=== PATIENT | female | born 1975 ===

== ENCOUNTER 2017-01-24 11:14 | Emergency (ER) | payer OTHER ==
[2017-01-24 11:40] VITALS: O2SAT 100
[2017-01-24 11:41] VITALS: BMI 27.4
[2017-01-24 12:14] VITALS: BP 141/85; PULSE 73; RESP 16; TEMP 98.2
--- NOTE | 2017-01-24 12:28 | ED PDOC ---
HPI: CCC, URI, Sore Throat Time Seen by Provider: 01/24/17 12:00 Chief Complaint (Nursing): Cough, Cold, Congestion Chief Complaint (Provider): Cough History Per: Patient History/Exam Limitations: no limitations Onset/Duration Of Symptoms: Days (x2) Current Symptoms Are (Timing): Still Present Associated Symptoms: Sputum (mild), Nasal Congestion, Other (body aches) Severity: Mild Additional Complaint(s): Patient is a 41 year old female presenting to the ED complaining of cough x2 days. Cough is associated with mild sputum, congestion, body aches, fatigue, and headache. Patient also complains of chest pain with cough. Patient did not take any medication for her symptoms. PMD: Shalom Duffy Past Medical History Reviewed: Historical Data, Nursing Documentation, Vital Signs Vital Signs: Last Vital Signs Temp 98.2 F 01/24/17 12:12 Pulse 73 01/24/17 12:12 Resp 16 01/24/17 12:12 BP 141/85 01/24/17 12:12 Pulse Ox 100 01/24/17 12:32 - Medical History PMH: Back Problems, Hypothyroidism Denies: Chronic Kidney Disease - Family History Family History: States: No Known Family Hx - Home Medications Home Medications: Ambulatory Orders Medication Instructions Recorded Levothyroxine [Synthroid] 88 mcg PO DAILY 01/11/16 oxyCODONE/Acetaminophen [Percocet 1 mg PO Q6 PRN 01/11/16 5/325 mg Tab] Albuterol HFA [Ventolin HFA 90 1 - 2 puff IH Q4 #200 puff 05/05/16 mcg/actuation (8 g)] Azithromycin [Zithromax Z-Ronaldo] 250 mg PO DAILY #5 tab 05/05/16 Methylprednisolone [Medrol Dose 4 mg PO DAILY #21 mg 05/05/16 Pack (21 tabs)] Nitrofurantoin Macrocrystals 100 mg PO BID #14 cap 05/11/16 [Macrobid] Levothyroxine [Synthroid] 0.088 mg PO DAILY #30 tab 01/24/17 Methylprednisolone [Medrol Dose 4 mg PO DAILY #21 mg 01/24/17 Pack (21 tabs)] Promethazine HCl/Codeine 5 ml PO HS #80 ml 01/24/17 [Prometh-Codein 6.25-10 mg/5 ml] - Allergies Allergies/Adverse Reactions: Allergies Allergy/AdvReac Type Severity Reaction Status Date / Time No Known Allergies Allergy Verified 01/24/17 12:12 Review of Systems ROS Statement: Except As Marked, All Systems Reviewed And Found Negative Constitutional: Positive for: Other (body aches +fatigue) ENT: Positive for: Nose Congestion Respiratory: Positive for: Cough, Sputum (mild) Physical Exam - Reviewed Nursing Documentation Reviewed: Yes Vital Signs Reviewed: Yes - Physical Exam Appears: Positive for: Well, Non-toxic, No Acute Distress Head Exam: Positive for: ATRAUMATIC, NORMAL INSPECTION, NORMOCEPHALIC Skin: Positive for: Normal Color, Warm, DRY Eye Exam: Positive for: EOMI, Normal appearance, PERRL ENT: Positive for: Normal ENT Inspection Cardiovascular/Chest: Positive for: Regular Rate, Rhythm. Negative for: Gallop , Murmur Respiratory: Positive for: Normal Breath Sounds. Negative for: Accessory Muscle Use, Rhonchi, Respiratory Distress Extremity: Positive for: Normal ROM Neurologic/Psych: Positive for: Alert, Oriented - ECG O2 Sat by Pulse Oximetry: 100 (RA) Pulse Ox Interpretation: Normal Medical Decision Making Medical Decision Making: Time: 12:05 Impression: URI r/o PNA Plan: CXR: NAD, as read by HERMES Suárez Attestation: Documented by Aleksandr England acting as a scribe for Marbella Edpetrona. Provider Attestation: All medical record entries made by the Scribe were at my direction and personally dictated by me. I have reviewed the chart and agreed that the record accurately reflects my personal performance of the history, physical exam, medical decision making, and the department course for this patient. I have also personally directed, reviewed, and agree with the discharge instructions and disposition. . Disposition - Clinical Impression Clinical Impression: Upper respiratory infection - Patient ED Disposition Is Patient to be Admitted: No - Disposition Referrals: Lucina Capellan MD [Primary Care Provider] - Disposition: Routine/Home Disposition Time: 14:18 Condition: GOOD Prescriptions: Methylprednisolone [Medrol Dose Pack (21 tabs)] 4 mg PO DAILY #21 mg Promethazine HCl/Codeine [Prometh-Codein 6.25-10 mg/5 ml] 5 ml PO HS #80 ml Levothyroxine [Synthroid] 0.088 mg PO DAILY #30 tab Instructions: Upper Respiratory Infection (ED) - POA Present On Arrival: None
--- NOTE | 2017-01-24 13:14 | RAD ---
HISTORY: cough and congestion COMPARISON: 05/11/2016 TECHNIQUE: Chest PA and lateral FINDINGS: LUNGS: The lungs are well inflated and clear. PLEURA: No significant pleural effusion identified. No pneumothorax apparent. CARDIOVASCULAR: Normal. OSSEOUS STRUCTURES: No significant abnormalities. VISUALIZED UPPER ABDOMEN: Normal. OTHER FINDINGS: None. IMPRESSION: No active pulmonary disease.
== END 2017-01-24 13:52 | disposition home or self-care (01) ==
LOC: H.ER 11:14
DX: J06.9 Acute upper respiratory infection, unspecified (principal); J02.9 Acute pharyngitis, unspecified; R05 Cough; E03.9 Hypothyroidism, unspecified

== ENCOUNTER 2017-03-27 20:51 | Emergency (ER) | payer SELFPAY ==
[2017-03-27 20:51] VITALS: BMI 27.4
[2017-03-27 21:21] VITALS: BP 112/81; PULSE 80; RESP 16; TEMP 98.1; O2SAT 100
--- NOTE | 2017-03-27 21:59 | ED PDOC ---
HPI: Back Time Seen by Provider: 03/27/17 21:26 Chief Complaint (Nursing): Back Pain Chief Complaint (Provider): Lower Back PAin History Per: Patient History/Exam Limitations: no limitations Onset/Duration Of Symptoms: Days (10 days) Additional Complaint(s): Ese Gonzalez, a 41 year old female, presents to the ED with atraumatic right sided lower back pain x 10 days. The patient states that her pain is worsens with movement. She reports that she was seen in the clinic and was prescribed naproxen which she has been taking with no relief. Denies dysuria, hematuria, incontinence, flank pain, abdominal pain, nausea, vomiting. Past Medical History Reviewed: Historical Data, Nursing Documentation, Vital Signs Vital Signs: Last Vital Signs Temp 98.1 F 03/27/17 21:18 Pulse 80 03/27/17 21:18 Resp 16 03/27/17 21:18 BP 112/81 03/27/17 21:18 Pulse Ox 100 03/27/17 21:18 - Medical History PMH: Back Problems, Hypothyroidism Denies: Chronic Kidney Disease - Surgical History Surgical History: No Surg Hx - Family History Family History: States: Unknown Family Hx - Home Medications Home Medications: Ambulatory Orders Medication Instructions Recorded Levothyroxine [Synthroid] 88 mcg PO DAILY 01/11/16 oxyCODONE/Acetaminophen [Percocet 1 mg PO Q6 PRN 01/11/16 5/325 mg Tab] Albuterol HFA [Ventolin HFA 90 1 - 2 puff IH Q4 #200 puff 05/05/16 mcg/actuation (8 g)] Azithromycin [Zithromax Z-Ronaldo] 250 mg PO DAILY #5 tab 05/05/16 Methylprednisolone [Medrol Dose 4 mg PO DAILY #21 mg 05/05/16 Pack (21 tabs)] Nitrofurantoin Macrocrystals 100 mg PO BID #14 cap 05/11/16 [Macrobid] Levothyroxine [Synthroid] 0.088 mg PO DAILY #30 tab 01/24/17 Methylprednisolone [Medrol Dose 4 mg PO DAILY #21 mg 01/24/17 Pack (21 tabs)] Promethazine HCl/Codeine 5 ml PO HS #80 ml 01/24/17 [Prometh-Codein 6.25-10 mg/5 ml] Cyclobenzaprine [Cyclobenzaprine 10 mg PO Q8 PRN #30 tab 03/27/17 HCl] Meloxicam [Mobic] 7.5 mg PO DAILY PRN #30 tab 03/27/17 - Allergies Allergies/Adverse Reactions: Allergies Allergy/AdvReac Type Severity Reaction Status Date / Time No Known Allergies Allergy Verified 01/24/17 12:12 Review of Systems ROS Statement: Except As Marked, All Systems Reviewed And Found Negative Gastrointestinal: Negative for: Nausea, Vomiting, Abdominal Pain Genitourinary Female: Negative for: Dysuria, Incontinence Musculoskeletal: Positive for: Other (Denies flank pain). Negative for: Back Pain Physical Exam - Reviewed Nursing Documentation Reviewed: Yes Vital Signs Reviewed: Yes - Physical Exam Appears: Positive for: Well, Non-toxic, No Acute Distress Head Exam: Positive for: ATRAUMATIC, NORMOCEPHALIC Skin: Positive for: Normal Color, Warm. Negative for: Rash Respiratory: Positive for: Normal Breath Sounds. Negative for: Wheezing, Respiratory Distress Gastrointestinal/Abdominal: Positive for: Normal Exam, Bowel Sounds, Soft. Negative for: Tenderness Back: Positive for: Normal Inspection, Muscle Spasm (Muscle spasms in the lumbar area.). Negative for: L CVA Tenderness, R CVA Tenderness, Vertebral Tenderness (No vetebral tenderness) Extremity: Positive for: Normal ROM. Negative for: Tenderness (No tenderness to the right lower back), Deformity, Swelling Neurologic/Psych: Positive for: Alert, Oriented - Laboratory Results Urine POC: Negative Urine dip results: Negative for: Leukocyte Esterase, Blood, Nitrate, Ketones, Glucose, Bilirubin, Protein - ECG O2 Sat by Pulse Oximetry: 100 (RA) Pulse Ox Interpretation: Normal - Progress Re-evaluation Time: 22:53 Condition: Re-examined, Improved Medical Decision Making Medical Decision Makin:26 Initial Impression: Right sided lower back pain Initial Plan: * Upreg * Udip * Toradol 10mg PO * Flexeril 10mg PO * RAD LS spine AP/LAT Scribe Attestation Documented by Erin Keene acting as a scribe for Maxx Pormentilla, PA-C. Provider Attestation All medical record entries made by the Zacibpiedad were at my direction and personally dictated by me. I have reviewed the chart and agree that the record accurately reflects my personal performance of the history, physical exam, medical decision making, and the department course for this patient. I have also personally directed, reviewed, and agree with the discharge instructions and disposition. Disposition - Clinical Impression Clinical Impression: Back pain - Patient ED Disposition Is Patient to be Admitted: No - Disposition Referrals: [facility] [Outside] [facility] [Outside] Disposition: Routine/Home Disposition Time: 22:53 Condition: IMPROVED Prescriptions: Cyclobenzaprine [Cyclobenzaprine HCl] 10 mg PO Q8 PRN #30 tab PRN Reason: Muscle Spasm Meloxicam [Mobic] 7.5 mg PO DAILY PRN #30 tab PRN Reason: Pain, Mild (1-3) Instructions: Acute Low Back Pain (ED) Print Language: MACEDONIAN
--- NOTE | 2017-03-28 11:00 | RAD ---
PROCEDURE: Radiographs of the Lumbar Spine. HISTORY: pain COMPARISON: Comparison made with prior study 12/21/2015 FINDINGS: BONES: No acute compression fractures no retropulsed fragments. Lumbar vertebral bodies exhibit relatively normal stature. . Minimal chronic anterior stature loss T11 segment. Mild side bending and/or spasm towards the right side. The vertebral bodies and facets otherwise normally aligned. DISC SPACES: Disc space heights are relatively maintained. Mild facet arthropathy L5-S1 and to a lesser degree L4-L5 and less so L3-L4 levels. Study OTHER FINDINGS: Re- demonstrated is in situ Copper-T IUD IMPRESSION: No acute fractures. Minor multilevel degenerative spondylosis.
== END 2017-03-27 23:02 | disposition home or self-care (01) ==
LOC: H.ER 20:51
DX: M54.5 Low back pain (principal); E03.9 Hypothyroidism, unspecified

== ENCOUNTER 2017-07-10 11:49 | Emergency (ER) | payer SELFPAY ==
[2017-07-10 11:50] VITALS: BMI 27.4
[2017-07-10 12:09] VITALS: BP 148/80; PULSE 86; RESP 16; TEMP 97; O2SAT 100
[2017-07-10] MEDS ORDERED: Naproxen 500 MG TAB PO STA (12:14)
--- NOTE | 2017-07-10 12:17 | ED PDOC ---
Lower Extremity Pain/Injury Time Seen by Provider: 07/10/17 12:15 Chief Complaint (Nursing): Lower Extremity Problem/Injury Chief Complaint (Provider): left leg pain History Per: Patient (42 y/o female here with left leg pain after trip and fall yesterday downstairs. Patient notes she is unable to bear weight on foot today. Took Motrin yesterday for control of pain.) Past Medical History Reviewed: Historical Data, Nursing Documentation, Vital Signs Vital Signs: Last Vital Signs Temp 97.0 F L 07/10/17 12:07 Pulse 86 07/10/17 12:07 Resp 16 07/10/17 12:07 BP 148/80 07/10/17 12:07 Pulse Ox 100 07/10/17 12:07 - Medical History PMH: Back Problems, Hypothyroidism Denies: Chronic Kidney Disease - Family History Family History: States: Unknown Family Hx - Home Medications Home Medications: Ambulatory Orders Medication Instructions Recorded Levothyroxine [Synthroid] 88 mcg PO DAILY 01/11/16 oxyCODONE/Acetaminophen [Percocet 1 mg PO Q6 PRN 01/11/16 5/325 mg Tab] Albuterol HFA [Ventolin HFA 90 1 - 2 puff IH Q4 #200 puff 05/05/16 mcg/actuation (8 g)] Azithromycin [Zithromax Z-Ronaldo] 250 mg PO DAILY #5 tab 05/05/16 Methylprednisolone [Medrol Dose 4 mg PO DAILY #21 mg 05/05/16 Pack (21 tabs)] Nitrofurantoin Macrocrystals 100 mg PO BID #14 cap 05/11/16 [Macrobid] Levothyroxine [Synthroid] 0.088 mg PO DAILY #30 tab 01/24/17 Methylprednisolone [Medrol Dose 4 mg PO DAILY #21 mg 01/24/17 Pack (21 tabs)] Promethazine HCl/Codeine 5 ml PO HS #80 ml 01/24/17 [Prometh-Codein 6.25-10 mg/5 ml] Cyclobenzaprine [Cyclobenzaprine 10 mg PO Q8 PRN #30 tab 03/27/17 HCl] Meloxicam [Mobic] 7.5 mg PO DAILY PRN #30 tab 03/27/17 Ibuprofen [Motrin] 600 mg PO Q8 PRN #21 tab 07/10/17 - Allergies Allergies/Adverse Reactions: Allergies Allergy/AdvReac Type Severity Reaction Status Date / Time No Known Allergies Allergy Verified 07/10/17 12:07 Review of Systems ROS Statement: Except As Marked, All Systems Reviewed And Found Negative Musculoskeletal: Positive for: Leg Pain Physical Exam - Reviewed Nursing Documentation Reviewed: Yes Vital Signs Reviewed: Yes - Physical Exam Appears: Positive for: Well, Non-toxic, No Acute Distress Head Exam: Positive for: ATRAUMATIC, NORMAL INSPECTION, NORMOCEPHALIC Skin: Positive for: Normal Color, Warm, DRY Eye Exam: Positive for: EOMI, Normal appearance, PERRL ENT: Positive for: Normal ENT Inspection Neck: Positive for: Normal, Painless ROM Cardiovascular/Chest: Positive for: Regular Rate, Rhythm Respiratory: Positive for: CNT, Normal Breath Sounds Gastrointestinal/Abdominal: Positive for: Normal Exam, Bowel Sounds, Soft Back: Positive for: Normal Inspection Extremity: Positive for: Normal ROM, Other (abrasion anterior left leg. ecchymosis lateral left leg. tender medial malleoulus. nontender lateral malleoulus. Nontender tib-fib. ) Neurologic/Psych: Positive for: Alert, Oriented - ECG O2 Sat by Pulse Oximetry: 100 - Progress ED Course And Treament: Naproxen 500mg x 1 dose XRY OF TIB-FIB NEG XRY OF ANKLE NEG XRY OF FOOT NEG 13:20 Discussed case with podiatry regarding foot pain and possible lisfranc injury. 13:38 Podiatry evaluates patient at bedside. PATIENT PLACED IN POSTERIOR SPLINT/ GIVEN CRUTCH INSTRUCTIONS. F/U WITH PODIATRY IN 1 WEEK Disposition - Clinical Impression Clinical Impression: Foot sprain - Patient ED Disposition Is Patient to be Admitted: No - Disposition Referrals: Podiatry Clinic [Outside] Disposition: Routine/Home Disposition Time: 14:45 Condition: FAIR Additional Instructions: [facility] Prescriptions: Ibuprofen [Motrin] 600 mg PO Q8 PRN #21 tab PRN Reason: Pain, Moderate (4-7) Instructions: Foot Sprain (ED) Forms: [place] (Greenlandic), [facility] ED School/Work Excuse Print Language: ESTONIAN
[2017-07-10] MEDS ORDERED: Naproxen 500 MG TAB PO ONE (12:36)
--- NOTE | 2017-07-10 14:45 | RAD ---
PROCEDURE: Left Foot Radiographs. HISTORY: foot injury COMPARISON: None. FINDINGS: BONES: Normal. No fracture. JOINTS: Minor hallux valgus deformity. SOFT TISSUES: Normal. OTHER FINDINGS: None. IMPRESSION: No acute findings related to/accounting for the clinical presentation.
--- NOTE | 2017-07-10 14:46 | RAD ---
PROCEDURE: Left Ankle Radiographs. HISTORY: ankle injury COMPARISON: None FINDINGS: BONES: Normal. No fracture. JOINTS: Normal. No osteoarthritis. Ankle mortise maintained. Talar dome intact SOFT TISSUES: Normal. OTHER FINDINGS: None. IMPRESSION: No acute findings related to/accounting for the clinical presentation.
--- NOTE | 2017-07-10 14:46 | RAD ---
PROCEDURE: Radiographs of the left tibia and fibula. HISTORY: r/o leg fx COMPARISON: None available. TECHNIQUE: Frontal and lateral views obtained. FINDINGS: BONES: No fracture or destructive lesion. JOINT SPACES: Unremarkable. OTHER FINDINGS: None. IMPRESSION: Unremarkable radiographs of the left tibia and fibula.
--- NOTE | 2017-07-10 16:29 | CP.PCM.CON ---
History of Present Illness - History of Present Illness History of Present Illness: 42 y/o female seen in ED by podiatry for left foot injury following a trip and fall incident yesterday. Pt states that she only had mild pain yesterday for which she took 2 Advil and was able to walk and sleep fine. Pt states when she woke up today it was very painful to walk on the foot at all and she came to the ED. Pt admits to a pins and needles sensation in the top of her foot in the area of her pain. Pt denies any F/C/N/V/D/SOB. PMH: hypothyroid PSH: cyst removed from neck All: NKDA Social: denies EtOH, cigarette, or drug use Review of Systems - Review of Systems All systems: reviewed and no additional remarkable complaints except (per HPI) Past Patient History - Past Medical History & Family History Past Medical History?: Yes - Past Social History Smoking Status: Never Smoked - CARDIAC Hx Cardiac Disorders: No - PULMONARY Hx Respiratory Disorders: No - NEUROLOGICAL Hx Neurological Disorder: Yes Other/Comment: BELLS PALSY - HEENT Hx HEENT Problems: Yes Hx Glaucoma: Yes (left eye) - RENAL Hx Chronic Kidney Disease: No - ENDOCRINE/METABOLIC Hx Hypothyroidism: Yes - HEMATOLOGICAL/ONCOLOGICAL Hx Blood Disorders: No - INTEGUMENTARY Hx Dermatological Problems: No - MUSCULOSKELETAL/RHEUMATOLOGICAL Hx Musculoskeletal Disorders: Yes - GASTROINTESTINAL Hx Gastrointestinal Disorders: No - GENITOURINARY/GYNECOLOGICAL Hx Genitourinary Disorders: No - PSYCHIATRIC Hx Psychophysiologic Disorder: No Hx Emotional Abuse: No Hx Physical Abuse: No Hx Substance Use: No - SURGICAL HISTORY Hx Surgeries: Yes (left shoulder surgery) - ANESTHESIA Hx Anesthesia: Yes Hx Malignant Hyperthermia: No Meds Home Medications: Home Medication List Medication Instructions Recorded Confirmed Type Ibuprofen [Motrin] 600 mg PO Q8 PRN #21 tab 07/10/17 Rx Allergies/Adverse Reactions: Allergies Allergy/AdvReac Type Severity Reaction Status Date / Time No Known Allergies Allergy Verified 07/10/17 12:07 Physical Exam - Constitutional Appears: Well, Non-toxic, No Acute Distress - Extremities Exam Additional comments: LLE focused examination: Vasc: DP/PT pulses palpable 2/4. Temperature gradient warm to cool. Mild non pitting edema to ankle and dorsum of foot, specifically dorsal midfoot. CFT < 3sec to all digits Derm: Ecchymosis noted to medial aspect of distal 1/2 of left leg. No open lesions, no erythema, no clinical signs of infection Neuro: Protective sensation is grossly intact Ortho: Tenderness upon palpation of dorsal midfoot. Limited ankle dorsiflexion due to pain and guarding. No pain elicited upon piano faustin test of 1st and 2nd digits. Ankle plantarflexion is WNL with muscle strength 5/5 for all plantarflexors. - Neurological Exam Neurological exam: Alert, Oriented x3 - Psychiatric Exam Psychiatric exam: Normal Affect, Normal Mood Results - Vital Signs Recent Vital Signs: Last Vital Signs Temp 97.0 F L 07/10/17 12:07 Pulse 86 07/10/17 12:07 Resp 16 07/10/17 12:07 BP 148/80 07/10/17 12:07 Pulse Ox 100 07/10/17 14:48 Assessment & Plan - Assessment and Plan (Free Text) Assessment: 42 y/o female with left midfoot sprain and possible nerve strain secondary to fall Plan: Pt seen and evaluated in ED Discussed plan in detail with attending Dr. Kvng Aguila reviewed- afebrile Applied posterior splint to LLE and instructed patient to keep clean dry and intact until next visit Pt dispensed crutches and instructed to use at all times Pt to get new x-rays prior to clinic visit Pt to follow up in 1 week in podiatry clinic at [facility]
== END 2017-07-10 15:30 | disposition home or self-care (01) ==
LOC: H.ER 11:49
DX: S93.602A Unspecified sprain of left foot, initial encounter (principal); W10.9XXA Fall (on) (from) unspecified stairs and steps, initial encounter; Y93.9 Activity, unspecified; E03.9 Hypothyroidism, unspecified

== ENCOUNTER 2017-09-18 19:42 | Emergency (ER) | payer SELFPAY ==
[2017-09-18 19:43] VITALS: BMI 27.4
[2017-09-18 20:02] VITALS: BP 130/96; PULSE 86; RESP 16; TEMP 97.3; O2SAT 99
--- NOTE | 2017-09-18 20:28 | ED PDOC ---
Lower Extremity Pain/Injury Time Seen by Provider: 09/18/17 20:06 Chief Complaint (Nursing): Lower Extremity Problem/Injury Chief Complaint (Provider): Foot injury History Per: Patient History/Exam Limitations: no limitations Onset/Duration Of Symptoms: Mins (x30) Current Symptoms Are (Timing): Still Present Additional Complaint(s): Ese Gonzalez is a 42 year old female who presents to the ED complaining of a left foot injury sustained 30 minutes prior to arrival. Patient states a piece of wood fell and hit her left foot. Patient states she injured the same foot 2 months ago and is scheduled for surgery on 10/07/17. Before injury patient was able to ambulate with brace, but is no longer capable of doing so since the injury this evening. No meds taken for pain relief prior to arrival. PMD: [facility] Past Medical History Reviewed: Historical Data, Nursing Documentation, Vital Signs Vital Signs: Last Vital Signs Temp 97.3 F L 09/18/17 20:00 Pulse 86 09/18/17 20:00 Resp 16 09/18/17 20:00 BP 130/96 H 09/18/17 20:00 Pulse Ox 99 09/18/17 20:00 - Medical History PMH: Back Problems, Hypothyroidism - Surgical History Other surgeries: Cyst removal from left side of neck - Family History Family History: States: No Known Family Hx - Living Arrangements Living Arrangements: With Family - Social History Current smoker - smoking cessation education provided: No Alcohol: None Drugs: Denies - Home Medications Home Medications: Ambulatory Orders Medication Instructions Recorded Levothyroxine [Synthroid] 88 mcg PO DAILY 01/11/16 oxyCODONE/Acetaminophen [Percocet 1 mg PO Q6 PRN 01/11/16 5/325 mg Tab] Albuterol HFA [Ventolin HFA 90 1 - 2 puff IH Q4 #200 puff 05/05/16 mcg/actuation (8 g)] Azithromycin [Zithromax Z-Ronaldo] 250 mg PO DAILY #5 tab 05/05/16 Methylprednisolone [Medrol Dose 4 mg PO DAILY #21 mg 05/05/16 Pack (21 tabs)] Nitrofurantoin Macrocrystals 100 mg PO BID #14 cap 05/11/16 [Macrobid] Levothyroxine [Synthroid] 0.088 mg PO DAILY #30 tab 01/24/17 Methylprednisolone [Medrol Dose 4 mg PO DAILY #21 mg 01/24/17 Pack (21 tabs)] Promethazine HCl/Codeine 5 ml PO HS #80 ml 01/24/17 [Prometh-Codein 6.25-10 mg/5 ml] Cyclobenzaprine [Cyclobenzaprine 10 mg PO Q8 PRN #30 tab 03/27/17 HCl] Meloxicam [Mobic] 7.5 mg PO DAILY PRN #30 tab 03/27/17 Ibuprofen [Motrin] 600 mg PO Q8 PRN #21 tab 07/10/17 Ibuprofen [Motrin Tab] 800 mg PO Q8 PRN #20 tab 09/18/17 traMADol [Ultram] 50 mg PO TID PRN #15 tab 09/18/17 - Allergies Allergies/Adverse Reactions: Allergies Allergy/AdvReac Type Severity Reaction Status Date / Time No Known Allergies Allergy Verified 07/10/17 12:07 Review of Systems ROS Statement: Except As Marked, All Systems Reviewed And Found Negative Musculoskeletal: Positive for: Foot Pain (left foot injury) Physical Exam - Reviewed Nursing Documentation Reviewed: Yes Vital Signs Reviewed: Yes - Physical Exam Appears: Positive for: Well, Non-toxic, No Acute Distress Head Exam: Positive for: ATRAUMATIC, NORMAL INSPECTION, NORMOCEPHALIC Skin: Positive for: Normal Color. Negative for: Rash Eye Exam: Positive for: Normal appearance Extremity: Positive for: Tenderness (Diffuse tenderness to dorsal aspect of left foot ). Negative for: Deformity (None obvious) Neurologic/Psych: Positive for: Alert, Oriented - Laboratory Results Urine POC: Negative (test declined by patient, she is certain she is not ) - ECG O2 Sat by Pulse Oximetry: 99 (RA) Pulse Ox Interpretation: Normal - Other Rad Left foot x-ray X-Ray: Interpreted by Me, Viewed By Me X-Ray Interpretation: no fx, no dis Medical Decision Making Medical Decision Making: Time: 20:22 Initial Impression: 42 year old female with left foot injury Plan: --Motrin 600 mg PO --X-Ray Foot Left 3 Views --Reevaluation Podiatry resident, Dr. Perez at bedside to see patient. Resident applied Santo wrap and shoe. Patient was given crutches. Prescriptions provided for Motrin and tramadol. Patient has follow-up next week with Dr. Ruiz. Scribe Attestation: Documented by Cricket Esqueda, acting as a scribe for Marbella Ovalles PA-C Provider Scribe Attestation: All medical record entries made by the Scribe were at my direction and personally dictated by me. I have reviewed the chart and agree that the record accurately reflects my personal performance of the history, physical exam, medical decision making, and the department course for this patient. I have also personally directed, reviewed, and agree with the discharge instructions and disposition. Disposition - Clinical Impression Clinical Impression: Foot contusion - Patient ED Disposition Is Patient to be Admitted: No Counseled Patient/Family Regarding: Studies Performed, Diagnosis, Need For Followup, Rx Given - Disposition Referrals: German Ruiz DPM [Staff Provider] - Disposition: Routine/Home Disposition Time: 22:17 Condition: STABLE Additional Instructions: Ice and rest the affected area. Prescription meds as directed as needed for pain. Follow-up with shank carrier as scheduled next week. Prescriptions: Ibuprofen [Motrin Tab] 800 mg PO Q8 PRN #20 tab PRN Reason: Pain, Moderate (4-7) traMADol [Ultram] 50 mg PO TID PRN #15 tab PRN Reason: Pain, Moderate (4-7) Instructions: Foot Contusion (ED) Forms: [place] (Spanish)
--- NOTE | 2017-09-19 10:58 | RAD ---
PROCEDURE: Left Foot Radiographs. HISTORY: 07/17/2017 COMPARISON: None. FINDINGS: BONES: Normal. No fracture. JOINTS: Normal. SOFT TISSUES: Normal. OTHER FINDINGS: None. IMPRESSION: No acute findings related to/accounting for the clinical presentation. Concordant results with the preliminary interpretation rendered by the emergency department physician procedure.
== END 2017-09-18 22:31 | disposition home or self-care (01) ==
LOC: H.ER 19:42
DX: S99.922A Unspecified injury of left foot, initial encounter (principal); W22.8XXA Striking against or struck by other objects, initial encounter; Y92.89 Other specified places as the place of occurrence of the external cause; E03.9 Hypothyroidism, unspecified

== ENCOUNTER 2017-10-07 06:23 | Day surgery (SDC) | payer SELFPAY ==
--- NOTE | 2017-09-18 22:54 | CP.PCM.CON ---
History of Present Illness - History of Present Illness History of Present Illness: Podiatry Consult for Dr. Ruiz 42 y.o female with PMH of hypothyroidism presents to the ED for left foot pain secondary to trauma. Patient reports that the wooden block laying against the wall fell on her left foot when she removed a basket that was holding the wooden block in place. Patient reports that she is scheduled to have Left foot ORIF Lisfranc next month. She reports the wooden block landed at the Lisfranc area where she was having prior pain before. She rates her pain 10/10. Describes the pain as a throbbing pain. Remains localized to the lisfranc area. Reports difficult for her to ambulate. She was given pain medication in the ED which she states is helping. She denies n/v/sob/cp/chills/f/d PMH: hypothyroidism PSH: cyst removed from neck Meds: Levothyroxine ALL: NKDA FH: noncontributory SH: denies smoking, drinking, or elicit drug use Past Patient History - Past Medical History & Family History Past Medical History?: Yes - Past Social History Smoking Status: Never Smoked - CARDIAC Hx Cardiac Disorders: No - PULMONARY Hx Respiratory Disorders: No - NEUROLOGICAL Hx Neurological Disorder: Yes Other/Comment: BELLS PALSY - HEENT Hx HEENT Problems: Yes Hx Glaucoma: Yes (left eye) - RENAL Hx Chronic Kidney Disease: No - ENDOCRINE/METABOLIC Hx Hypothyroidism: Yes - HEMATOLOGICAL/ONCOLOGICAL Hx Blood Disorders: No - INTEGUMENTARY Hx Dermatological Problems: No - MUSCULOSKELETAL/RHEUMATOLOGICAL Hx Musculoskeletal Disorders: Yes - GASTROINTESTINAL Hx Gastrointestinal Disorders: No - GENITOURINARY/GYNECOLOGICAL Hx Genitourinary Disorders: No - PSYCHIATRIC Hx Psychophysiologic Disorder: No Hx Emotional Abuse: No Hx Physical Abuse: No Hx Substance Use: No - SURGICAL HISTORY Hx Surgeries: Yes (left shoulder surgery) - ANESTHESIA Hx Anesthesia: Yes Hx Malignant Hyperthermia: No Meds Allergies/Adverse Reactions: Allergies Allergy/AdvReac Type Severity Reaction Status Date / Time No Known Allergies Allergy Verified 07/10/17 12:07 Physical Exam - Constitutional Appears: Well, Non-toxic, No Acute Distress - Extremities Exam Additional comments: Vasc: DP and PT 2/4 bilaterally, CFT <3 seconds, localized edema noted to the dorsum of the left foot Ortho: severe pain with palpation to the lisfranc joint, moderate pain ilicited with dorsiflexion of the 1st MPJ left Neuro: gross and protective sensation intact bilaterally Derm: no open lesions, mild ecchymosis noted to the 1st metatarsal base-2nd metatarsal base, no increase warmth, no clinical signs of infection - Neurological Exam Neurological exam: Alert, Oriented x3 - Psychiatric Exam Psychiatric exam: Normal Affect, Normal Mood Assessment & Plan - Assessment and Plan (Free Text) Assessment: 42 y.o female with PMH of hypothyroidism presents to the ED for left foot contusion at the lisfranc joint Plan: Patient examined and evaluated Charts, labs, vitals reviewed Discussed plan in detail with Dr. Ruiz X-rays reviewed: no fractures noted; compared x-ray to 07/17/17 with no changes noted, no acute changes secondary to today's injuries. RENETTA wrap, dispense surgical shoe Educated on RICE protocol Instructed to PWB in surgical shoe and RENETTA Recommends OTC pain medication for pain management Will continue treatment plan for previous injuries: Lisfranc ORIF for next month as talked about in [facility] clinic Will f/u with Dr. Ruiz in [facility] clinic on Saturday as scheduled Thank you for the consult
[2017-10-03 11:45] VITALS: BMI 28.3
[2017-10-07] MEDS ORDERED: Lactated Ringer's 1,000 ML IV ONE ×2 (06:55→08:54)
[2017-10-07] MEDS ORDERED: Lidocaine 1% Inj (20ml) IJ ONE (07:07)
[2017-10-07] MEDS ORDERED: ceFAZolin IV 2 gm in Dextrose 2 GM/50 ML BAG IVPB ONE (07:07)
--- NOTE | 2017-10-07 07:12 | CP.SDSHP ---
Same Day Surgery H & P - History Proposed Procedure: L- ORIF Lisfranc Pre-Op Diagnosis: left foot lisfranc joint contusion - Previous Medical/Surgical History Endocrine/Metabolic: Thyroid Disease - Allergies Allergies: Allergies No Known Allergies Allergy (Verified 07/10/17 12:07) - Physical Exam Vital Signs: Vital Signs 10/07/17 10/07/17 06:39 06:41 Temperature 98.5 F Pulse Rate 90 90 Respiratory 20 Rate Blood Pressure 136/89 O2 Sat by Pulse 99 Oximetry Mental Status: Alert & Oriented x3 Neuro: WNL Heart: WNL Lungs: WNL GI: WNL - {Optional Preform as Required} Abdomen: WNL Ortho: Other - Date & Time Date: 10/07/17 Time: 07:11 Short Stay Discharge - Short Stay Discharge Admitting Diagnosis/Reason for Visit: S93.325 Disposition: HOME/ ROUTINE Additional Instructions (Diet, Activity): -Patient in good/stable condition for discharge home -Pt to resume medications per medical reconciliation -Resume regular diet Please keep dressing clean, dry, & intact to surgical site -Use plastic bag over bandage for showering -Wear post op shoe at all times when ambulating -Call clinic if you seesigns of infection (redness, swelling, malodor) -Please make an appointment to see Dr. Ruiz in office/clinic within 1 week for post-op check Progress Note/Discharge Note with Instructions: - Patient evaluated bedside in recovery s/p surgical procedure. - After surgical procedure patient in NAD - (+) Void, (+) Appetite - Capillary refill time <3s and NVSI intact. - Patient denies complaints at this time - Post operative instructions and plan of care explained to patient at length. - Pt. acknowledges understanding. - Patient stable for DC per podiatric surgery
[2017-10-07] MEDS ORDERED: Bupivacaine 0.5% Inj(30mL) IJ ONE ×2 (07:15→09:10)
[2017-10-07] MEDS ORDERED: Sodium Chloride 0.9% 1,000 ML IV SCH (07:15)
--- NOTE | 2017-10-07 07:16 | CP.PCM.PN ---
Subjective - Date & Time of Evaluation Date of Evaluation: 10/07/17 Time of Evaluation: 07:12 - Subjective Subjective: 42 y/o female with PMHx of hyperthyroidism seen and evaluated at bedside in [facility] prior to L- ORIF Lisfranc proecure. Patient agrees to having surgery on her left foot today. Patient states that she has been NPO since midnight. Patient denies of any adverse reactions to anesthesia. Denies of any recent F/N/V/C/SOB/ CP today. PMHx: Hyperthyroidism PSHx: Left shoulder cyst removal Allergies: N.K.D.A SHx: denies smoking, EtOH use or illicit drug usage Objective - Vital Signs/Intake and Output Vital Signs (last 24 hours): Temp Pulse Resp BP Pulse Ox 98.5 F 90 20 136/89 99 10/07/17 06:39 10/07/17 06:41 10/07/17 06:39 10/07/17 06:39 10/07/17 06:39 - Medications Medications: Current Medications Bupivacaine HCl (Marcaine 0.5%) 50 ml IJ ONCE ONE Stop: 10/07/17 07:08 Cefazolin Sodium 2 gm/ Sodium (Chloride) 100 mls @ 100 mls/hr IVPB ONCE ONE PRN Reason: Protocol Stop: 10/07/17 08:06 Sodium Chloride (Sodium Chloride 0.9%) 1,000 mls @ 100 mls/hr IV .Q10H JENS Stop: 10/08/17 07:08 Lidocaine HCl (Lidocaine 1% (20ml)) 20 ml IJ ONCE ONE Stop: 10/07/17 07:08 - Constitutional Appears: Well, Non-toxic, No Acute Distress - Respiratory Exam Respiratory Exam: Clear to Ausculation Bilateral, NORMAL BREATHING PATTERN - Cardiovascular Exam Cardiovascular Exam: REGULAR RHYTHM, +S1, +S2 - Extremities Exam Extremities Exam: absent: Calf Tenderness Additional comments: Vasc: DP and PT 2/4 bilaterally, CFT <3 seconds, Temp gradient: warm to cool from proximal to distal, minimal non-pitting edema noted on the dorsum of the left foot Derm: no open lesions, mild ecchymosis noted to the medial aspect of the left foot, no increase warmth, no clinical signs of infection Neuro: gross and protective sensation intact bilaterally Ortho: mild pain with palpation to the lisfranc joint, moderate pain ilicited with dorsiflexion of the 1st MPJ left - Neurological Exam Neurological Exam: Alert, Awake, Oriented x3 - Psychiatric Exam Psychiatric exam: Normal Affect, Normal Mood Assessment and Plan - Assessment and Plan (Free Text) Assessment: 42 y/o female with PMHx of hyperthyroidism seen in [facility] for left ORIF of Lisfranc procedure Plan: Pt was seen and examined in [facility] Pt NPO status was confirmed All Pre-op testing and clearance was in the chart Pt has exhausted all conservative treatment at this time and is opting for surgical intervention Pt was explained procedure and post-operative course All pt's questions were answered to satisfaction No guarantees were made Pt understands all risks, benefits and complications of procedure Pt will follow-up with Dr. Ruiz
[2017-10-07] MEDS ORDERED: ceFAZolin IV 1 gm in Dextrose 1 GM/50 ML BAG IVPB ONE ×2 (07:27→07:33)
[2017-10-07] MEDS ORDERED: Lidocaine 1% Inj (20ml) ONE (07:27)
[2017-10-07] MEDS ORDERED: Bupivacaine 0.5% Inj(30mL) ONE (07:27)
[2017-10-07] MEDS ORDERED: Midazolam 2 MG/2 ML VIAL ONE (07:33)
[2017-10-07] MEDS ORDERED: Propofol 10 mg/ml Inj (20 ML) ONE (07:33)
[2017-10-07] MEDS ORDERED: Oxycodone/Acetaminophen 5/325 mg Tab PO PRN ×2 (09:23)
--- NOTE | 2017-10-07 09:27 | PCM.SURG1 ---
Surgeon's Initial Post Op Note - Surgeon's Notes Surgeon: Dr. German Ruiz Principal Strategist: Dr. Xavier Rios Type of Anesthesia: General LMA, Local Pre-Operative Diagnosis: Left foot Lisfranc instability, sprain Operative Findings: see dictation. M: 4.0mm Karlee PT screw, 4-0 vicryl, 4-0 nylon. I: 20ml 1:1 1% lidocaine plain, 0.5% marcaine plain; 10ml 0.5% marcaine plain Post-Operative Diagnosis: Left foot Lisfranc ligament instability, sprain Operation Performed: Left foot open reduction and internal fixation of Lisfranc ligament instability Specimen/Specimens Removed: none Estimated Blood Loss: EBL {In ML}: 2 Blood Products Given: N/A Drains Used: No Drains Post-Op Condition: Good Date of Surgery/Procedure: 10/07/17 Time of Surgery/Procedure: 08:30
[2017-10-07] MEDS ORDERED: DiphenhydrAMINE 50 mg/ml Inj IVP PRN (09:55)
[2017-10-07] MEDS ORDERED: Lactated Ringer's 1,000 ML IV SCH (10:00)
[2017-10-07] MEDS: HYDROmorphone 0.5 mg/0.5 ml ISec IVP PRN ×2 (10:15→10:27)
[2017-10-07 10:29] VITALS: RESP 18
[2017-10-07 13:14] VITALS: BP 108/72; PULSE 84; TEMP 97.7; O2SAT 100
--- NOTE | 2017-10-07 14:56 | RAD ---
PROCEDURE: Left Foot Radiographs. HISTORY: s/p left foot surgery COMPARISON: Preoperative examination 09/18/2017 FINDINGS: BONES: Postoperative findings identified related to partially fenestrated screw traversing the 1st cuneiform and proximal 2nd metatarsal. JOINTS: Normal. SOFT TISSUES: Normal. OTHER FINDINGS: None. IMPRESSION: Satisfactory postoperative status. Limitations of the current study: Detail obscured by overlying fiberglass cast.
--- NOTE | 2017-10-07 16:50 | RAD ---
PROCEDURE: Fluoroscopy over 1 hour HISTORY: LEFT FOOT COMPARISON: None TECHNIQUE: Standard protocol for this study/examination. FINDINGS: Total fluoroscopic time (continuous mode) utilized during the procedure: 84.9 seconds. Submitted images from the current procedure: 8.0 IMPRESSION: Fluoroscopic assistance provided described in greater detail above. For open reduction internal fixation
--- NOTE | 2017-10-09 19:50 | OP ---
PROCEDURE DATE: 10/07/2017 PREOPERATIVE DIAGNOSIS: Left foot Lisfranc ligament tear and instability. POSTOPERATIVE DIAGNOSIS: Left foot Lisfranc ligament tear and instability. PROCEDURE PERFORMED: Left foot Lisfranc ligament and joint open reduction and internal fixation. SURGEON: Dr. German Ruiz. TOBACCO CLASSER: Dr. Kodak Keane and Dr. May Greenwood. ANESTHESIA: General LMA and local injection. INDICATIONS: This patient is a 42-year-old female with the aforementioned diagnosis. The patient has been treated by Dr. Ruiz in the outpatient podiatry clinic and she has exhausted all conservative treatment options, and the patient seeks surgical intervention at this time. All alternatives, benefits, complications, and risks of surgical procedure were explained to the patient at length. The patient verbalizes understanding and wished to proceed. All questions were addressed and answered. No guarantees were given or implied. The consent was signed and the n.p.o. status was confirmed prior to bringing the patient into the operating room. OPERATIVE PROCEDURE: The patient was brought into the operating room, and placed on the operative room table in the supine position. A pneumatic ankle tourniquet was applied to the supramalleolar region around the left ankle. After induction of general anesthesia, a total of 20ml of a 1:1 mixture of 0.5% marcaine plain and 1% lidocaine plain was administered to the left foot. The left foot was then prepped and draped in the normal sterile manner and the procedure began. PROCEDURE: Left foot Lisfranc ligament and joint open reduction and internal fixation. Attention was directed to the dorsal medial aspect of the left midfoot where a linear longitudinal incision was made directly overlying the medial cuneiform with a 15 blade. The incision was deepened through superficial and subcutaneous tissues utilizing sharp and blunt dissection. Care was taken to retract all vital neurovascular structures throughout the duration of the procedure. Dissection was then carried down through the level of the periosteum overlying the medial aspect of the medial cuneiform and the 15 blade was again utilized to make a linear incision through the periosteum. A [place]odan elevator and 15 blade were then utilized to free the periosteum from the medial surface of the medial cuneiform. Next, intraoperative fluoroscopy was utilized and a stress test was performed to assess instability at the intercuneiform joint and Lisfranc joint. It was noted that there was no instability at the intercuneiform joint, but there was instability between the second metatarsal medial cuneiform along the axis of the Lisfranc ligament. Next, a guidewire for a Karlee 4.0-mm cannulated screw was inserted into the medial aspect of the medial cuneiform and directed distal lateral towards the base of the second metatarsal to recreate the Lisfranc ligament. Intraoperative fluoroscopy was utilized to confirm appropriate placement. Next, the appropriate under-drill for a Karlee 4.0-mm partially-threaded screw was drilled over the guide wire using standard AO technique. The guide wire was then remove and a Karlee 4.0-mm solid partially- threaded screw was inserted utilizing standard AO technique and tightened to 2-finger tightness. Upon insertion of the screw, the Lisfranc joint was held in manual reduction to ensure stability of the ligament and joint. Intraoperative fluoroscopy was then again utilized throughout this procedure. It was then noted that the Lisfranc ligament and joint had been adequately stabilized and the screw was in the appropriate position. The surgical area was then flushed with copious amounts of sterile normal saline. The subcutaneous tissues were then reapproximated utilizing 4-0 Vicryl suture. The skin was then reapproximated utilizing 4-0 nylon suture. Intraoperative injections consisted of 10 mL of 0.5% Marcaine plain. Postoperative bandages consisted of Xeroform, DSD, Cuca, Webril, a posterior splint, and Santo bandages. POSTOPERATIVE CONDITION: The patient tolerated the procedure and the anesthesia well with no apparent complications or complaints. The patient was escorted from the OR to the recovery room with vital signs stable and neurovascular status intact. The patient will follow up with Dr. Ruiz as an outpatient in the [facility] clinic. Kodak Keane DPM ZACKERY
== END 2017-10-07 13:57 | disposition home or self-care (01) ==
LOC: H.OPSURG 06:23
PROVIDERS: ATTEND Podiatrist Foot & Ankle Surgery
DX: S93.325A Dislocation of tarsometatarsal joint of left foot, initial encounter (principal); X58.XXXA Exposure to other specified factors, initial encounter; E05.90 Thyrotoxicosis, unspecified without thyrotoxic crisis or storm
CPT/HCPCS: 28122; 28485; 73630; 97161; 97530; C1713; C1769; J0690; J1170; J1885; J2001; J2250; J2405; J2704; J3010; J7030; J7040; J7120

== ENCOUNTER 2017-10-14 10:39 | Emergency (ER) | payer OTHER ==
[2017-10-14 10:40] VITALS: BMI 28.3
[2017-10-14 10:45] VITALS: BP 129/84; PULSE 82; RESP 18; TEMP 98; O2SAT 98
--- NOTE | 2017-10-14 13:16 | ED PDOC ---
HPI: General Adult Time Seen by Provider: 10/14/17 11:10 Chief Complaint (Nursing): Lower Extremity Problem/Injury History Per: Patient Additional Complaint(s): Pt. states on Saturday she had L foot tendon surgery performed by Dr. Ruiz. Pt. states 2 days after she developed pain to the back of the L knee. Also states that she was seen in the podiatry clinic today and instructed to come to ED for an US to r/o DVT. Denies SOB, chest pain, palpitations, hx of DVT or PE. Past Medical History Reviewed: Historical Data, Nursing Documentation, Vital Signs Vital Signs: Last Vital Signs Temp 98 F 10/14/17 10:42 Pulse 82 10/14/17 10:42 Resp 18 10/14/17 10:42 BP 129/84 10/14/17 10:42 Pulse Ox 98 10/14/17 14:25 - Medical History PMH: Back Problems, Hyperthyroidism, Hypothyroidism Denies: Chronic Kidney Disease - Family History Family History: States: No Known Family Hx - Home Medications Home Medications: Ambulatory Orders Medication Instructions Recorded Levothyroxine [Synthroid] 0.088 mg PO DAILY #30 tab 01/24/17 Cephalexin [Keflex] 875 mg PO TID 10/07/17 oxyCODONE/Acetaminophen [Percocet 5 - 325 mg PO Q4 10/07/17 5/325 mg Tab] - Allergies Allergies/Adverse Reactions: Allergies Allergy/AdvReac Type Severity Reaction Status Date / Time No Known Allergies Allergy Verified 07/10/17 12:07 Review of Systems ROS Statement: Except As Marked, All Systems Reviewed And Found Negative Musculoskeletal: Positive for: Leg Pain Physical Exam - Physical Exam Appears: Positive for: Well, Non-toxic, No Acute Distress Skin: Positive for: Normal Color, Warm. Negative for: Rash Extremity: Positive for: Other (LLE in long posterior orthoglass short leg splint) - ECG O2 Sat by Pulse Oximetry: 98 - Progress ED Course And Treament: Duplex LLE vein: negative. Leg placed in posterior long leg orthoglass splint applied by PA. Results d/w Julius and agrees with care. Disposition - Clinical Impression Clinical Impression: Leg pain - Patient ED Disposition Is Patient to be Admitted: No - Disposition Referrals: Podiatry Clinic [Outside] Disposition: Routine/Home Disposition Time: 14:24 Condition: STABLE Additional Instructions: Follow up with patch sander for further evaluation. Instructions: Splint Care (ED), Leg Pain (ED) Forms: [employer] (Finnish) Print Language: BOTSWANAN
--- NOTE | 2017-10-14 14:08 | US ---
HISTORY: pain . PRIORS: None. FINDINGS: 2-D, color and duplex Doppler analysis of the lower extremity venous circulation using routine protocol from the femoral veins through the popliteal veins. Venous compressibility: Normal. Flow and augmentation patterns: Normal. Visualized veins upper third of calf: Normal. Steward cyst: None. IMPRESSION: No sonographic or Doppler evidence for DVT in left lower extremity.
== END 2017-10-14 14:10 | disposition home or self-care (01) ==
LOC: H.ER 10:39
DX: G89.18 Other acute postprocedural pain (principal); E03.9 Hypothyroidism, unspecified; E05.90 Thyrotoxicosis, unspecified without thyrotoxic crisis or storm

== ENCOUNTER 2017-12-05 22:43 | Emergency (ER) | payer SELFPAY ==
[2017-12-05 22:44] VITALS: BMI 28.3
[2017-12-06 00:19] VITALS: BP 129/86; PULSE 91; RESP 17; TEMP 98.6; O2SAT 100
[2017-12-06 01:11] LABS: SQUAMOUS EPITHIAL 1 /hpf (0-5); URINE BILIRUBIN NEGATIVE (NEGATIVE); URINE BLOOD NEGATIVE (NEGATIVE); URINE CLARITY SLIGHTY-CLOUDY (Clear); URINE COLOR YELLOW (YELLOW); URINE GLUCOSE (UA) NEG (Normal); URINE LEUKOCYTE ESTERASE NEG Leu/uL (Negative); URINE NITRATE NEGATIVE (NEGATIVE); URINE PROTEIN 30 mg/dL (NEGATIVE); URINE UROBILINOGEN 0.2-1.0 mg/dL (0.2-1.0)
--- NOTE | 2017-12-06 03:37 | US ---
EXAM: US Duplex Left Lower Extremity Veins CLINICAL HISTORY: 42 years old, female; Pain and injury or trauma; Fall; Follow-up exam; Fracture, pathological; Leg, lower; Left; Injury date: About one month ago; Additional info: Left pain R/O dvt. TECHNIQUE: Real-time ultrasound scan of the veins of the left lower extremity with color Doppler flow, spectral waveform analysis and compression. COMPARISON: No relevant prior studies available. FINDINGS: Deep veins: Normal color and spectral Doppler flow. Normal compressibility. No deep vein thrombosis from common femoral to popliteal vein. Superficial veins: No thrombosis. Soft tissues: No popliteal cyst. Lymph nodes: Two probable inguinal lymph nodes, larger measuring 2.4 x 1.6 cm. IMPRESSION: 1. No evidence of DVT within LEFT lower extremity. 2. Incidental/non-acute findings are described above.
--- NOTE | 2017-12-06 04:22 | ED PDOC ---
HPI: General Adult Time Seen by Provider: 12/06/17 00:55 Chief Complaint (Nursing): Abnormal Skin Integrity Chief Complaint (Provider): left leg pain History Per: Patient (42 y/o female h/o Lisfranc injury with repair notes swelling in left inguinal region with pain in leg. Denies any fever/chlils/ abdominal pain. Denies any dysuria.) Past Medical History Reviewed: Historical Data, Nursing Documentation, Vital Signs Vital Signs: Last Vital Signs Temp 98.6 F 12/06/17 00:16 Pulse 91 H 12/06/17 00:16 Resp 17 12/06/17 00:16 BP 129/86 12/06/17 00:16 Pulse Ox 100 12/06/17 00:16 - Medical History PMH: Back Problems, Hyperthyroidism, Hypothyroidism Denies: Chronic Kidney Disease - Family History Family History: States: Unknown Family Hx - Home Medications Home Medications: Ambulatory Orders Medication Instructions Recorded Levothyroxine [Synthroid] 0.088 mg PO DAILY #30 tab 01/24/17 Cephalexin [Keflex] 875 mg PO TID 10/07/17 oxyCODONE/Acetaminophen [Percocet 5 - 325 mg PO Q4 10/07/17 5/325 mg Tab] Naproxen 1 tab PO Q12 PRN #14 tab 12/06/17 - Allergies Allergies/Adverse Reactions: Allergies Allergy/AdvReac Type Severity Reaction Status Date / Time No Known Allergies Allergy Verified 07/10/17 12:07 Review of Systems ROS Statement: Except As Marked, All Systems Reviewed And Found Negative Physical Exam - Reviewed Nursing Documentation Reviewed: Yes Vital Signs Reviewed: Yes - Physical Exam Appears: Positive for: Well, Non-toxic, No Acute Distress Head Exam: Positive for: ATRAUMATIC, NORMAL INSPECTION, NORMOCEPHALIC Skin: Positive for: Normal Color, Warm, DRY Eye Exam: Positive for: EOMI, Normal appearance, PERRL ENT: Positive for: Normal ENT Inspection Neck: Positive for: Normal, Painless ROM Cardiovascular/Chest: Positive for: Regular Rate, Rhythm Respiratory: Positive for: CNT, Normal Breath Sounds Gastrointestinal/Abdominal: Positive for: Normal Exam, Bowel Sounds, Soft, Other (tender lymph node noted inguinal region) Back: Positive for: Normal Inspection Extremity: Positive for: Normal ROM Neurologic/Psych: Positive for: Alert, Oriented - ECG O2 Sat by Pulse Oximetry: 100 - Progress ED Course And Treament: FINDINGS: Deep veins: Normal color and spectral Doppler flow. Normal compressibility. No deep vein thrombosis from common femoral to popliteal vein. Superficial veins: No thrombosis. Soft tissues: No popliteal cyst. Lymph nodes: Two probable inguinal lymph nodes, larger measuring 2.4 x 1.6 cm. IMPRESSION: 1. No evidence of DVT within LEFT lower extremity. 2. Incidental/non-acute findings are described above. Thank you for allowing us to participate in the care of your patient. Dictated and Authenticated by: Haroon Nina MD Disposition - Clinical Impression Clinical Impression: Lymphadenopathy - Patient ED Disposition Is Patient to be Admitted: No - Disposition Referrals: Jasson Jack MD [Primary Care Provider] - Disposition: Routine/Home Disposition Time: 04:22 Condition: FAIR Additional Instructions: MARI RODGER TONY CON PODIATRICA Prescriptions: Naproxen 1 tab PO Q12 PRN #14 tab PRN Reason: Pain, Moderate (4-7) Instructions: Lymphadenopathy (ED) Print Language: BELARUSIAN
== END 2017-12-06 04:30 | disposition home or self-care (01) ==
LOC: H.ER 22:43
DX: R59.9 Enlarged lymph nodes, unspecified (principal); E03.9 Hypothyroidism, unspecified; E05.90 Thyrotoxicosis, unspecified without thyrotoxic crisis or storm

== ENCOUNTER 2017-12-09 06:17 | Day surgery (SDC) | payer SELFPAY ==
--- NOTE | 2017-12-09 07:06 | CP.PCM.PN ---
Subjective - Date & Time of Evaluation Date of Evaluation: 12/09/17 Time of Evaluation: 07:02 - Subjective Subjective: 42 year old female seen preoperatively in [facility] for pain in left foot secondary to hardware from Lis Franc Joint surgery that took place on 10/07/17. Patient states that her pain today is 6/10. She states that she has not had anything to eat or drink since before midnight last night. Denies any adverse affects to previous experiences with anesthesia. She is seen in bed wearing a posterior splint at time of visit. Patient is AAO x 3 and NAD. Denies any further pedal complaints. Denies N/V/F/C/CP/SOB/D/posterior calf pain. Does state that she was seen in the ED here last for a "lump" in her groin. Patient underwent ultrasound and was told that they were enlarged lymph nodes. Left lower extremity was negative for DVT at that time. Objective - Vital Signs/Intake and Output Vital Signs (last 24 hours): Temp Pulse Resp BP Pulse Ox 97.8 F 99 H 18 111/79 98 12/09/17 06:52 12/09/17 06:52 12/09/17 06:52 12/09/17 06:52 12/09/17 06:52 - Constitutional Appears: Well, Non-toxic, No Acute Distress - Extremities Exam Additional comments: LE focused exam: Posterior splint to right leg noted to be C/D/I Vasc: CFT < 3 seconds to all digits. Skin temperature warm Neuro: Epicritic and protective sensation grossly intact b/l Derm: Cicatrix noted to dorsal left foot secondary to previous history of surgery. Otherwise, no open lesions, wounds, maceration, xerosis, abnormal pigmentation or abnormal growths noted MSK: POP to dorsal midfoot at level of Lis Franc joint - Neurological Exam Neurological Exam: Alert, Awake, Oriented x3 - Psychiatric Exam Psychiatric exam: Normal Affect, Normal Mood Assessment and Plan - Assessment and Plan (Free Text) Assessment: 42 year old female seen in [facility] preoperatively for removal of painful hardware at left lis franc joint Plan: Pt was seen and examined in [facility] Pt NPO status was confirmed All pre-op testing and clearance in chart Pt has exhausted all conservative treatment at this time and is opting for surgical intervention Pt was explained procedure and post-operative course All pt's questions were answered to satisfaction No guarantees were made Pt understands all risks, benefits and complications of procedure Pt will follow-up with Dr. Ruiz within 1 week of surgery
[2017-12-09] MEDS ORDERED: Dexamethasone 4 mg/1 ml ONE (07:13)
[2017-12-09] MEDS ORDERED: Bupivacaine 0.5% Inj(30mL) ONE (07:13)
[2017-12-09] MEDS ORDERED: Lidocaine 1% Inj (20ml) ONE (07:13)
--- NOTE | 2017-12-09 07:17 | CP.SDSHP ---
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 Evaluated Today:Candidate for Anesthesia & Procedure: Yes - Date & Time Date: 12/09/17 Time: 07:17 Short Stay Discharge - Short Stay Discharge Admitting Diagnosis/Reason for Visit: S93.622D Disposition: HOME/ ROUTINE Referrals: Yue Vila MD [Primary Care Provider] - Follow-up: Dr. Ruiz Additional Instructions (Diet, Activity): ADDISON
[2017-12-09] MEDS ORDERED: ceFAZolin 1 GM in Sodium Chloride 0.9% 100 ML IVPB ONE (07:26)
[2017-12-09] MEDS ORDERED: Bupivacaine 0.5% Inj(30mL) IJ ONE (07:26)
[2017-12-09] MEDS ORDERED: Sodium Chloride 0.9% 1,000 ML IV SCH (07:30)
[2017-12-09] MEDS ORDERED: Propofol 10 mg/ml Inj (20 ML) ONE (08:02)
[2017-12-09] MEDS ORDERED: Midazolam 2 MG/2 ML VIAL ONE (08:02)
[2017-12-09] MEDS ORDERED: Lactated Ringer's 1,000 ML IV ONE (08:05)
[2017-12-09] MEDS ORDERED: Bupivacaine 0.5% 50 ML IJ ONE (08:21)
--- NOTE | 2017-12-09 08:55 | PCM.SURG1 ---
Surgeon's Initial Post Op Note - Surgeon's Notes Surgeon: Dr. Ruzi DPM Foundation Relations Director: Dr. Chung DPM PGY-1, Dr. Park DPM PGY-2 Type of Anesthesia: IV Sedation Anesthesia Administered By: Dr. Stanford Pre-Operative Diagnosis: left foot painful hardware Operative Findings: see dictation. M:4-0 vicryl, 3-0 nylon Post-Operative Diagnosis: same Operation Performed: left foot removal of painful hardware Specimen/Specimens Removed: screw Estimated Blood Loss: EBL {In ML}: 1 Blood Products Given: N/A Drains Used: No Drains Post-Op Condition: Good Date of Surgery/Procedure: 12/09/17 Time of Surgery/Procedure: 08:55
[2017-12-09] MEDS ORDERED: Oxycodone/Acetaminophen 5/325 mg Tab PO PRN ×2 (08:56)
[2017-12-09] MEDS: HYDROmorphone 0.5 mg/0.5 ml ISec IVP PRN ×2 (09:00→09:20)
[2017-12-09] MEDS ORDERED: Lactated Ringer's 1,000 ML IV SCH (09:00)
[2017-12-09 10:27] VITALS: RESP 18
[2017-12-09] MEDS ORDERED: Oxycodone/Acetaminophen 5/325 mg Tab PO ONE (10:30)
[2017-12-09 13:18] VITALS: BP 108/78; PULSE 76; TEMP 97.6; O2SAT 98
--- NOTE | 2017-12-09 13:27 | RAD ---
PROCEDURE: Left Foot Radiographs. HISTORY: s/p left foot sx COMPARISON: Preoperative examination 11/08/2017 FINDINGS: BONES: No acute fractures. Partially fenestrated screw identified on the prior study 1st cuneiform and anchored to the 2nd and 3rd metatarsals is been removed. JOINTS: Normal. SOFT TISSUES: Expected postop findings following removal of the orthopedic hardware. This includes focal soft tissue swelling and air within the soft tissues at the level of the 1st cuneiform. OTHER FINDINGS: None. IMPRESSION: Satisfactory postoperative status.
--- NOTE | 2017-12-12 08:46 | OP ---
PROCEDURE DATE: 12/09/2017 SURGEON: German Ruiz DPM ASSISTANTS: Ritesh Chung DPM, PGY 1 and Megan Park PGY2 ANESTHESIOLOGIST: Anthony Stanford MD TYPE OF ANESTHESIA: IV sedation with local. PREOPERATIVE DIAGNOSIS: Painful hardware of left foot. POSTOPERATIVE DIAGNOSIS: Status post removal of painful hardware, left foot. NAME OF PROCEDURE: Removal of painful hardware, left foot. INDICATIONS: The patient is a 42-year-old female with the above diagnosis. The patient has exhausted all conservative treatment at this time and now requires surgical intervention. The patient signed a consent after careful explanation of risks, benefits, complications, and alternatives for surgical procedure. No guarantees were given nor implied. NPO status was confirmed prior to taking the patient to the OR. PREPARATION: The patient was brought into the operating room and placed on the operating room table in a supine position. Time-out was performed for identification of the correct patient and procedure. After induction of IV sedation, the patient received a total of 7 mL of 0.5% Marcaine plain in a local block fashion to the medial left foot at the area where the retained hardware was known to be located. The left lower extremity was then prepped and draped in the normal sterile manner and the procedure began. Ankle tourniquet was used during the procedure and was set to 250 mmHg. It was inflated prior to making an incision during the procedure. DESCRIPTION OF PROCEDURE: Removal of painful hardware, left foot: Attention was then turned to the patient's left foot where a previous surgery for a Lisfranc joint injury had been performed with insertion of a screw into the patient's left foot across the Lisfranc joint. Using a fresh #15 blade, an approximately 2 cm longitudinal incision was made over the top of the that was noted from the previous procedure performed on the patient's left foot. The dissection was performed using a hemostat as well as freer elevator until the patient's left foot was dissected all the way down to the bone. At this time, a C-arm fluoroscopy unit was used to locate and identify where the retained hardware was located. The hardware was then visualized and removed without incident using a screwdriver. The surgical site was then flushed with copious amounts of normal sterile saline and a bulb syringe and was then closed with using 4-0 Vicryl suturing deep tissues and 3-0 nylon suturing superficially. The surgical site was then cleansed with saline, dried and dressed with Adaptic dry sterile dressing and a light Santo bandage. POSTOPERATIVE CONDITION: The patient tolerated the anesthesia and procedure well and was escorted to the recovery room with vital signs stable and neurovascular status intact to the left lower extremity and foot. The patient is to remain weightbearing as tolerated to the left lower extremity and will follow up in the podiatry clinic here at [facility] upon discharge from the hospital later today. Ritesh Chung DPM German Ruiz DPM
== END 2017-12-09 13:05 | disposition home or self-care (01) ==
LOC: H.OPSURG 06:17
PROVIDERS: ATTEND Podiatrist Foot & Ankle Surgery
DX: T84.84XA Pain due to internal orthopedic prosthetic devices, implants and grafts, initial encounter (principal); E03.9 Hypothyroidism, unspecified; M54.9 Dorsalgia, unspecified; Y83.1 Surgical operation with implant of artificial internal device as the cause of abnormal reaction of the patient, or of later complication, without mention of misadventure at the time of the procedure
CPT/HCPCS: 20680; 73630; 88304; J0690; J1170; J2250; J2405; J2704; J3010; J7030; J7120

== ENCOUNTER 2018-12-09 14:07 | Emergency (ER) | payer OTHER ==
[2018-12-09 14:07] VITALS: BMI 28.3
[2018-12-09 14:16] VITALS: BP 126/85; PULSE 82; RESP 16; TEMP 97.4; O2SAT 99
--- NOTE | 2018-12-09 16:04 | ED PDOC ---
HPI: Back Time Seen by Provider: 12/09/18 14:20 Chief Complaint (Nursing): Back Pain Chief Complaint (Provider): Back Pain History Per: Patient History/Exam Limitations: no limitations Onset/Duration Of Symptoms: Days (x1 week) Current Symptoms Are (Timing): Still Present Additional Complaint(s): 43 year old female presents to the ED for evaluation of atraumatic lower back pain radiating down her left leg for the past week. She reports her last dose of Tylenol being yesterday around 2100 without relief. Otherwise denies dysuria, hematuria, incontinence, abdominal pain, fever, chills, and weakness. PMD: CFH Past Medical History Reviewed: Historical Data, Nursing Documentation, Vital Signs Vital Signs: Last Vital Signs Temp 97.4 F L 12/09/18 14:13 Pulse 82 12/09/18 14:13 Resp 16 12/09/18 14:13 BP 126/85 12/09/18 14:13 Pulse Ox 99 12/09/18 14:13 - Medical History PMH: Back Problems, Hyperthyroidism, Hypothyroidism Denies: Chronic Kidney Disease Other PMH: Dent's Palsy - Surgical History Other surgeries: ORIF left foot - Family History Family History: States: Unknown Family Hx - Social History Current smoker - smoking cessation education provided: No Alcohol: None Drugs: Denies - Home Medications Home Medications: Ambulatory Orders Medication Instructions Recorded RX: Levothyroxine [Synthroid] 0.088 mg PO DAILY #30 tab 01/24/17 Cephalexin [cephalexin] 500 mg PO TID 12/09/17 Cyclobenzaprine [Cyclobenzaprine 10 mg PO Q8 PRN #10 tab 12/09/18 HCl] RX: Naproxen [Naprosyn] 500 mg PO BID PRN #10 tab 12/09/18 - Allergies Allergies/Adverse Reactions: Allergies Allergy/AdvReac Type Severity Reaction Status Date / Time No Known Allergies Allergy Verified 12/09/18 14:13 Review of Systems ROS Statement: Except As Marked, All Systems Reviewed And Found Negative Constitutional: Negative for: Fever, Chills, Weakness Gastrointestinal: Negative for: Abdominal Pain Genitourinary Female: Negative for: Dysuria, Incontinence, Hematuria Musculoskeletal: Positive for: Back Pain (lower radiating down left leg) Physical Exam - Reviewed Nursing Documentation Reviewed: Yes Vital Signs Reviewed: Yes - Physical Exam Cardiovascular/Chest: Positive for: Regular Rate, Rhythm Respiratory: Positive for: Normal Breath Sounds Gastrointestinal/Abdominal: Positive for: Soft. Negative for: Tenderness Back: Positive for: Normal Inspection, Other (bilateral para lumbar tenderness). Negative for: L CVA Tenderness, R CVA Tenderness, Vertebral Tenderness Extremity: Positive for: Other (bilateral lower extremity strength 5/5) - ECG O2 Sat by Pulse Oximetry: 99 (RA) Pulse Ox Interpretation: Normal Medical Decision Making Medical Decision Making: Time: 1504 Initial Impression: back pain Initial Plan: --U-preg --U-dip --Flexeril 10mg PO --Toradol 30mg IM --LS-Spine XR 1610 Patient sleeping upon reevaluation, but easily arousable and reports improvement in symptoms saying she feels much better. Informed that XR shows no acute fracture or dislocation and urine results show no clinically significant abnormalities. Return parameters discussed and pt advised to follow up with [facility], or the ED with any worsening symptoms. All questions answered. Pt told that XR read is preliminary and she will be contacted if the official read has any discrepancies. --- -- Scribe Attestation: Documented by Tameka Campbell, acting as a scribe for Maxx Camacho PA-C. Provider Scribe Attestation: All medical record entries made by the Scribe were at my direction and personally dictated by me. I have reviewed the chart and agree that the record accurately reflects my personal performance of the history, physical exam, medical decision making, and the department course for this patient. I have also personally directed, reviewed, and agree with the discharge instructions and disposition. Disposition - Clinical Impression Clinical Impression: Sciatica - Patient ED Disposition Is Patient to be Admitted: No Counseled Patient/Family Regarding: Studies Performed, Diagnosis, Need For Followup, Rx Given - Disposition Referrals: [facility] [Outside] Disposition: Routine/Home Disposition Time: 16:14 Condition: IMPROVED Additional Instructions: FOLLOW UP WITH [facility] FOR FURTHER EVALUATION RETURN TO ED IMMEDIATELY IF SYMPTOMS WORSEN COLIN LU, thank you for letting us take care of you today. Your provider was Alan Floyd MD and you were treated for LOWER BACK PAIN. The emergency medical care you received today was directed at your acute symptoms. If you were prescribed any medication, please fill it and take as directed. It may take several days for your symptoms to resolve. Return to the Emergency Department if your symptoms worsen, do not improve, or if you have any other problems. Please contact your doctor or call one of the physicians/clinics you have been referred to that are listed on the Patient Visit Information form that is included in your discharge packet. Bring any paperwork you were given at discharge with you along with any medications you are taking to your follow up visit. Our treatment cannot replace ongoing medical care by a primary care prov ider outside of the emergency department. Thank you for allowing the [facility] team to be part of your care today. If you had an X-Ray or CT scan: A Radiologist will review the ED reading if any change in treatment is needed we will contact you. If you had a blood, urine, or wound culture: It will take several days for the results, if any change in treatment is needed we will contact you. If you had an STI test: It will take 48 hours for the results. Please call after 1 week if you have not heard back. Prescriptions: Cyclobenzaprine [Cyclobenzaprine HCl] 10 mg PO Q8 PRN #10 tab PRN Reason: Muscle Spasm RX: Naproxen [Naprosyn] 500 mg PO BID PRN #10 tab PRN Reason: Pain Instructions: Sciatica (DC), Sciatica Exercises Forms: [employer] (Slovak) Print Language: BELIZEAN
--- NOTE | 2018-12-09 16:17 | RAD ---
Date of service: 12/09/2018 PROCEDURE: Radiographs of the Lumbar Spine. HISTORY: pain COMPARISON: No prior. FINDINGS: BONES: Normal alignment. No listhesis. No fracture. DISC SPACES: Unremarkable. OTHER FINDINGS: Incidental intrauterine device identified in situ in the pelvis. IMPRESSION: Unremarkable radiographs of the lumbar spine.
== END 2018-12-09 16:27 | disposition home or self-care (01) ==
LOC: H.ER 14:07
DX: M54.30 Sciatica, unspecified side (principal); E05.90 Thyrotoxicosis, unspecified without thyrotoxic crisis or storm; E03.9 Hypothyroidism, unspecified
CPT/HCPCS: 72100; 81025; 96372; 99283; J1885